=== PATIENT | female | born 2000 | race Caucasian/White ===

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

== ENCOUNTER 2023-07-05 09:25 | Emergency (ER) | payer MEDICAID | END 2023-07-05 09:37 | disposition left against medical advice (07) | LOC: ER 09:25 | DX: Z32.00 Encounter for pregnancy test, result unknown (principal); Z53.21 Procedure and treatment not carried out due to patient leaving prior to being seen by health care provider ==